=== PATIENT | female | born 1950 | race Caucasian/White ===

== ENCOUNTER 2019-09-28 05:22 | Inpatient (IN) | payer MEDICARE, OTHER ==
[~2019-09-28] VITALS: Ht 160 cm; Wt 57.7 kg
[~2019-09-28 05:22] MED LIST: ASPIRIN81 M1 PO; CALTRATE 600 +1 TA1 PO; COREG25 MG PO; FISH OIL 10001000 MG PO; FOLIC ACID1 MG PO; GLUCOSAMINE & C1 CA1 PO; LEFLUNOMIDE20 MG PO; LISINOPRIL10 MG PO; MELOXICAM7.5 MG PO; PLAQUENIL200 MG PO; PREDNISONE2.5 MG PO; SULFASALAZINE500 M1 PO; SYNTHROID,LEV112 MCG PO; VITAMIN D1000 IU PO
[2019-09-28 05:29] VITALS: BP 135/79
[2019-09-28 05:53] LABS: BASO % 0.6 % (0.0-1.0); EOS # 0.1 10*3/uL (0.0-0.4); EOS % 2.6 % (1.0-4.0); LYMPH # 1.2 10*3/uL (1.3-4.4); LYMPH % 25.8 % (27.0-41.0); MEAN CELL VOLUME 104.9 fl (81.0-99.0); MEAN CORPUSCULAR HGB 31.5 pg (27.0-31.0); MEAN PLATELET VOLUME 10.9 fl (9.6-12.3); MONO # 0.5 10*3/uL (0.1-1.0); MONO % 11.4 % (3.0-9.0); NEUT # 2.8 10*3/uL (2.3-7.9); NEUT % 59.4 % (47.0-73.0); PLATELET COUNT AUTOMATED 177 10*3/uL (130-400); RED BLOOD COUNT 2.86 10*6/uL (4.10-5.10); RED CELL DISTRI WIDTH 13.6 % (0-14.5); WHITE BLOOD COUNT 4.7 10*3/uL (4.8-10.8)
[2019-09-28 06:08] LABS: ALBUMIN 2.7 gm/dl (3.1-4.5); ALKALINE PHOSPHATASE 84 U/L (45-117); BUN 19 mg/dl (7-24); CHLORIDE 108 mmol/L (98-107); CREATININE 0.62 mg/dL (0.55-1.02); POTASSIUM 3.7 mmol/L (3.5-5.1); SGOT/AST 7 IU/L (3-35); SGPT/ALT 8 U/L (12-78); SODIUM 140 mmol/L (136-145); TOTAL PROTEIN 5.8 gm/dL (6.4-8.2)
[2019-09-28 06:11] LABS: TROPONIN I < 0.015 ng/ml (<0.045)
[2019-09-28 06:22] LABS: ACT PARTIAL THROMBO TIME 26.9 SECONDS (20.0-32.1)
[2019-09-28 08:56] VITALS: BP 120/68
[2019-09-28] MEDS ORDERED: OXYCODONE HCL10 M1 PO (09:40)
[2019-09-28] MEDS ORDERED: POTASSIUM CHLO10 ME5 PO (09:40)
[2019-09-28] MEDS ORDERED: FUROSEMIDE20 M1 PO (09:41)
[2019-09-28] MEDS ORDERED: PHARMASSURE FO0.8 MG PO (09:43)
[2019-09-28] MEDS ORDERED: PREDNISONE10 M1 PO (09:50)
[2019-09-28 12:00] VITALS: BP 119/87
[2019-09-28 16:00] VITALS: BP 141/66
[2019-09-28 20:00] VITALS: BP 127/60
[2019-09-29] VITALS: BP 112/54
[2019-09-29 08:00] VITALS: BP 147/66
[2019-09-29] MEDS ORDERED: KLOR-CON M2020 ME1 PO (11:25)
[2019-09-29] MEDS ORDERED: FUROSEMIDE10 MG/1 M1 IV (11:25)
[2019-09-29 12:00] VITALS: BP 132/71
== END 2019-09-29 16:12 | disposition home health service (06) | DRG 306 ==
LOC: ED 05:22 → EDHOLD 08:19 → 4E 08:19 → EDHOLD 08:19 → 4E 08:41
PROVIDERS: Emergency Medicine; ADMIT Internal Medicine
DX: I35.0 Nonrheumatic aortic (valve) stenosis (principal); I50.23 Acute on chronic systolic (congestive) heart failure; I25.110 Atherosclerotic heart disease of native coronary artery with unstable angina pectoris; I42.9 Cardiomyopathy, unspecified; I11.0 Hypertensive heart disease with heart failure; M06.9 Rheumatoid arthritis, unspecified; E03.9 Hypothyroidism, unspecified; F41.1 Generalized anxiety disorder; L89.150 Pressure ulcer of sacral region, unstageable; L89.621 Pressure ulcer of left heel, stage 1; G20 Parkinson's disease; Z96.652 Presence of left artificial knee joint; Z88.0 Allergy status to penicillin; Z88.6 Allergy status to analgesic agent; Z91.040 Latex allergy status; Z79.899 Other long term (current) drug therapy; Z90.710 Acquired absence of both cervix and uterus

== ENCOUNTER → 2019-11-18 | Outpatient (CLI) | payer MEDICARE, OTHER ==
[~2019-11-18] MED LIST changes: +FUROSEMIDE10 MG/1 M1 IV; +FUROSEMIDE20 M1 PO; +KLOR-CON M2020 ME1 PO; +OXYCODONE HCL10 M1 PO; +PHARMASSURE FO0.8 MG PO; +POTASSIUM CHLO10 ME5 PO; +PREDNISONE10 M1 PO
[2019-11-18 09:54] LABS: BASO % 0.4 % (0.0-1.0); EOS # 0.1 10*3/uL (0.0-0.4); HEMATOCRIT 32.8 % (37.0-47.0); LYMPH % 14.2 % (27.0-41.0); MEAN CELL VOLUME 102.8 fl (81.0-99.0); MEAN CORPUSCULAR HGB 30.7 pg (27.0-31.0); MEAN CORPUSCULAR HGB CONC 29.9 g/dl (33.0-37.0); MEAN PLATELET VOLUME 10.9 fl (9.6-12.3); MONO # 0.7 10*3/uL (0.1-1.0); MONO % 10.1 % (3.0-9.0); NEUT # 4.9 10*3/uL (2.3-7.9); NEUT % 73.9 % (47.0-73.0); PLATELET COUNT AUTOMATED 185 10*3/uL (130-400); RED BLOOD COUNT 3.19 10*6/uL (4.10-5.10); RED CELL DISTRI WIDTH 13.2 % (0-14.5); WHITE BLOOD COUNT 6.7 10*3/uL (4.8-10.8)
[2019-11-18 10:17] LABS: BILIRUBIN, DIRECT 0.1 mg/dL (0.0-0.2)
[2019-11-18 10:20] LABS: ALKALINE PHOSPHATASE 68 U/L (45-117); BUN 18 mg/dl (7-24); CHLORIDE 106 mmol/L (98-107); CREATININE 0.51 mg/dL (0.55-1.02); POTASSIUM 4.2 mmol/L (3.5-5.1); SGOT/AST 12 IU/L (3-35); SGPT/ALT 8 U/L (12-78); SODIUM 136 mmol/L (136-145); TOTAL PROTEIN 6.5 gm/dL (6.4-8.2)
== END | disposition home or self-care (01) ==
LOC: LAB 09:18
PROVIDERS: Internal Medicine Endocrinology, Diabetes & Metabolism; ATTEND Physician Assistant
DX: Z51.81 Encounter for therapeutic drug level monitoring (principal); E06.3 Autoimmune thyroiditis; M06.9 Rheumatoid arthritis, unspecified; Z79.899 Other long term (current) drug therapy

== ENCOUNTER → 2020-05-11 | Outpatient (CLI) | payer MEDICARE, OTHER ==
[~2020-05-11] MED LIST changes: +ADVIL200 MG PO; +B121000 MCG/1 IM; +BENADRYL ALLERG25 M5 PO; +CEFUROXIME AXE250 MG PO; +KLOR-CON M1010 ME1 PO; -LISINOPRIL10 MG PO; +MIRTAZAPINE15 M2 PO; +ZESTRIL10 MG PO
[2020-05-11 08:22] LABS: BASO % 0.4 % (0.0-1.0); EOS # 0.1 10*3/uL (0.0-0.4); EOS % 2.2 % (1.0-4.0); HEMATOCRIT 27.8 % (37.0-47.0); LYMPH # 1.3 10*3/uL (1.3-4.4); LYMPH % 23.2 % (27.0-41.0); MEAN CELL VOLUME 104.5 fl (81.0-99.0); MEAN CORPUSCULAR HGB 31.6 pg (27.0-31.0); MEAN CORPUSCULAR HGB CONC 30.2 g/dl (33.0-37.0); MEAN PLATELET VOLUME 11.4 fl (9.6-12.3); MONO # 0.8 10*3/uL (0.1-1.0); MONO % 14.8 % (3.0-9.0); NEUT # 3.2 10*3/uL (2.3-7.9); NEUT % 59.2 % (47.0-73.0); PLATELET COUNT AUTOMATED 213 10*3/uL (130-400); RED BLOOD COUNT 2.66 10*6/uL (4.10-5.10); RED CELL DISTRI WIDTH 13.3 % (0-14.5); WHITE BLOOD COUNT 5.4 10*3/uL (4.8-10.8)
[2020-05-11 08:53] LABS: ALBUMIN 2.5 gm/dl (3.1-4.5); ALKALINE PHOSPHATASE 71 U/L (45-117); BUN 35 mg/dl (7-24); CHLORIDE 109 mmol/L (98-107); CREATININE 0.64 mg/dL (0.55-1.02); POTASSIUM 4.5 mmol/L (3.5-5.1); SGOT/AST 9 IU/L (3-35); SGPT/ALT 8 U/L (12-78); SODIUM 137 mmol/L (136-145); TOTAL PROTEIN 5.6 gm/dL (6.4-8.2)
[2020-05-11 09:36] LABS: PTH INTACT 32.1 pg/mL (18.5-88.0); VITAMIN D, 25-HYDROXY 62.9 ng/mL (30-100)
== END | disposition home or self-care (01) ==
LOC: LAB 07:32
PROVIDERS: ATTEND Internal Medicine Endocrinology, Diabetes & Metabolism
DX: M06.9 Rheumatoid arthritis, unspecified (principal); E06.3 Autoimmune thyroiditis; E83.52 Hypercalcemia; Z79.899 Other long term (current) drug therapy

== ENCOUNTER 2020-05-24 17:08 | Inpatient (IN) | payer MEDICARE, OTHER ==
[~2020-05-24] VITALS: Ht 165.1 cm; Wt 46.9 kg
[2020-05-24] VITALS (17 sets, daily range): BP systolic 50–97; BP diastolic 17–54
[~2020-05-24 17:08] MED LIST changes: -ADVIL200 MG PO; -B121000 MCG/1 IM; -BENADRYL ALLERG25 M5 PO; -CEFUROXIME AXE250 MG PO; -KLOR-CON M1010 ME1 PO; -MIRTAZAPINE15 M2 PO
[2020-05-24 18:21] LABS: BASO % 0.2 % (0.0-1.0); EOS # 0.1 10*3/uL (0.0-0.4); EOS % 0.5 % (1.0-4.0); HEMATOCRIT 25.6 % (37.0-47.0); LYMPH % 10.1 % (27.0-41.0); MEAN CORPUSCULAR HGB 31.6 pg (27.0-31.0); MEAN CORPUSCULAR HGB CONC 29.3 g/dl (33.0-37.0); MEAN PLATELET VOLUME 11.1 fl (9.6-12.3); MONO # 1.1 10*3/uL (0.1-1.0); MONO % 11.6 % (3.0-9.0); NEUT # 7.5 10*3/uL (2.3-7.9); NEUT % 77.2 % (47.0-73.0); PLATELET COUNT AUTOMATED 299 10*3/uL (130-400); RED BLOOD COUNT 2.37 10*6/uL (4.10-5.10); RED CELL DISTRI WIDTH 14.7 % (0-14.5); WHITE BLOOD COUNT 9.7 10*3/uL (4.8-10.8)
[2020-05-24 18:38] LABS: ALBUMIN 2.4 gm/dl (3.1-4.5); ALKALINE PHOSPHATASE 83 U/L (45-117); BUN 49 mg/dl (7-24); CHLORIDE 108 mmol/L (98-107); CREATININE 0.75 mg/dL (0.55-1.02); POTASSIUM 4.5 mmol/L (3.5-5.1); SGOT/AST 5 IU/L (3-35); SGPT/ALT 7 U/L (12-78); SODIUM 134 mmol/L (136-145); TOTAL PROTEIN 5.5 gm/dL (6.4-8.2)
[2020-05-24 18:39] LABS: TROPONIN I < 0.015 ng/ml (<0.045)
[2020-05-24 20:03] LABS: BILIRUBIN Negative (Negative); BLOOD 2+ (Negative); CLARITY Cloudy (Clear); COLOR Yellow (Yellow); GLUCOSE Negative (Negative); KETONE Negative (Negative); LEUKO ESTERASE 3+ (Negative); NITRITE Negative (Negative); PH 5.5 (4.5-8.0); UROBILINOGEN 0.2 E.U./dl (0.0-1.0)
[2020-05-24 20:09] LABS: BACTERIA 2+; MUCOUS TRACE; WBC TNTC wbc/hpf (0-5)
[2020-05-25] VITALS (9 sets, daily range): BP systolic 90–120; BP diastolic 49–75
[2020-05-25] MEDS ORDERED: PLAQUENIL200 MG PO (01:21)
[2020-05-25] MEDS ORDERED: B121000 MCG/1 IM (01:22)
[2020-05-25] MEDS ORDERED: ADVIL200 MG PO (01:26)
[2020-05-25 05:09] LABS: BASO % 0.3 % (0.0-1.0); EOS # 0.1 10*3/uL (0.0-0.4); HEMATOCRIT 29.6 % (37.0-47.0); LYMPH # 1.1 10*3/uL (1.3-4.4); LYMPH % 18.9 % (27.0-41.0); MEAN CORPUSCULAR HGB 31.2 pg (27.0-31.0); MEAN CORPUSCULAR HGB CONC 31.8 g/dl (33.0-37.0); MONO # 0.8 10*3/uL (0.1-1.0); NEUT # 3.8 10*3/uL (2.3-7.9); NEUT % 65.5 % (47.0-73.0); PLATELET COUNT AUTOMATED 226 10*3/uL (130-400); RED BLOOD COUNT 3.01 10*6/uL (4.10-5.10); RED CELL DISTRI WIDTH 16.4 % (0-14.5); WHITE BLOOD COUNT 5.8 10*3/uL (4.8-10.8)
[2020-05-25 05:11] LABS: ALBUMIN 1.9 gm/dl (3.1-4.5); CHLORIDE 112 mmol/L (98-107); CREATININE 0.52 mg/dL (0.55-1.02); POTASSIUM 3.9 mmol/L (3.5-5.1); SGOT/AST 8 IU/L (3-35); SGPT/ALT 7 U/L (12-78); SODIUM 137 mmol/L (136-145)
[2020-05-25 05:16] LABS: ALKALINE PHOSPHATASE 66 U/L (45-117); BUN 41 mg/dl (7-24); TOTAL PROTEIN 4.5 gm/dL (6.4-8.2)
[2020-05-25 05:20] LABS: MEAN CELL VOLUME 98.3 fl (81.0-99.0)
[2020-05-25] MEDS ORDERED: BENADRYL ALLERG25 M5 PO (12:15)
[2020-05-26] VITALS: BP 141/73
[2020-05-26 04:00] VITALS: BP 119/67
[2020-05-26 04:50] LABS: ALBUMIN 1.8 gm/dl (3.1-4.5); ALKALINE PHOSPHATASE 69 U/L (45-117); CHLORIDE 115 mmol/L (98-107); CREATININE 0.47 mg/dL (0.55-1.02); SGOT/AST 11 IU/L (3-35); SODIUM 137 mmol/L (136-145); TOTAL PROTEIN 4.6 gm/dL (6.4-8.2)
[2020-05-26 04:53] LABS: SGPT/ALT 8 U/L (12-78)
[2020-05-26 04:55] LABS: BUN 29 mg/dl (7-24)
[2020-05-26 06:04] LABS: HEMATOCRIT 32.5 % (37.0-47.0); MEAN CELL VOLUME 98.8 fl (81.0-99.0); MEAN CORPUSCULAR HGB 30.7 pg (27.0-31.0); MEAN CORPUSCULAR HGB CONC 31.1 g/dl (33.0-37.0); MEAN PLATELET VOLUME 11.4 fl (9.6-12.3); PLATELET COUNT AUTOMATED 223 10*3/uL (130-400); RED BLOOD COUNT 3.29 10*6/uL (4.10-5.10); RED CELL DISTRI WIDTH 16.8 % (0-14.5); WHITE BLOOD COUNT 5.1 10*3/uL (4.8-10.8)
[2020-05-26 06:42] LABS: BURR CELLS MODERATE; PLATELET SUFFICIENCY NORMAL (NORMAL); TOTAL CELLS COUNTED 100 #CELLS
[2020-05-26 08:00] VITALS: BP 124/65
[2020-05-26 12:00] VITALS: BP 125/86
[2020-05-26 16:18] VITALS: BP 103/51
[2020-05-26 20:00] VITALS: BP 141/73
[2020-05-27] VITALS: BP 126/77
[2020-05-27 07:55] LABS: BASO % 0.3 % (0.0-1.0); EOS # 0.2 10*3/uL (0.0-0.4); EOS % 2.1 % (1.0-4.0); HEMATOCRIT 32.4 % (37.0-47.0); LYMPH # 1.2 10*3/uL (1.3-4.4); LYMPH % 16.8 % (27.0-41.0); MEAN CELL VOLUME 98.8 fl (81.0-99.0); MEAN CORPUSCULAR HGB 31.1 pg (27.0-31.0); MEAN CORPUSCULAR HGB CONC 31.5 g/dl (33.0-37.0); MEAN PLATELET VOLUME 10.7 fl (9.6-12.3); MONO # 1.1 10*3/uL (0.1-1.0); MONO % 14.4 % (3.0-9.0); NEUT # 4.8 10*3/uL (2.3-7.9); NEUT % 65.8 % (47.0-73.0); PLATELET COUNT AUTOMATED 263 10*3/uL (130-400); RED BLOOD COUNT 3.28 10*6/uL (4.10-5.10); RED CELL DISTRI WIDTH 16.7 % (0-14.5); WHITE BLOOD COUNT 7.3 10*3/uL (4.8-10.8)
[2020-05-27 08:14] LABS: ALKALINE PHOSPHATASE 67 U/L (45-117); CHLORIDE 112 mmol/L (98-107); CREATININE 0.42 mg/dL (0.55-1.02); POTASSIUM 3.7 mmol/L (3.5-5.1); SGOT/AST 10 IU/L (3-35); SGPT/ALT 9 U/L (12-78); SODIUM 136 mmol/L (136-145); TOTAL PROTEIN 4.8 gm/dL (6.4-8.2)
[2020-05-27 08:17] LABS: BUN 19 mg/dl (7-24)
[2020-05-27 16:00] VITALS: BP 96/59
[2020-05-27 20:00] VITALS: BP 104/62; BP 156/89
[2020-05-28] VITALS (9 sets, daily range): BP systolic 72–117; BP diastolic 41–74
[2020-05-29] VITALS: BP 109/60
[2020-05-29 05:09] LABS: ALKALINE PHOSPHATASE 66 U/L (45-117); BUN 22 mg/dl (7-24); CHLORIDE 113 mmol/L (98-107); CREATININE 0.44 mg/dL (0.55-1.02); SGOT/AST 9 IU/L (3-35); SGPT/ALT 6 U/L (12-78); SODIUM 140 mmol/L (136-145); TOTAL PROTEIN 4.4 gm/dL (6.4-8.2)
[2020-05-29 05:14] LABS: POTASSIUM 2.6 mmol/L (3.5-5.1)
[2020-05-29 06:21] LABS: BASO % 0.3 % (0.0-1.0); EOS # 0.1 10*3/uL (0.0-0.4); EOS % 1.5 % (1.0-4.0); HEMATOCRIT 30.6 % (37.0-47.0); LYMPH % 14.3 % (27.0-41.0); MEAN CORPUSCULAR HGB 31.1 pg (27.0-31.0); MEAN CORPUSCULAR HGB CONC 31.4 g/dl (33.0-37.0); MONO # 0.9 10*3/uL (0.1-1.0); MONO % 12.8 % (3.0-9.0); NEUT # 4.8 10*3/uL (2.3-7.9); NEUT % 70.4 % (47.0-73.0); PLATELET COUNT AUTOMATED 227 10*3/uL (130-400); RED BLOOD COUNT 3.09 10*6/uL (4.10-5.10); RED CELL DISTRI WIDTH 16.4 % (0-14.5); WHITE BLOOD COUNT 6.9 10*3/uL (4.8-10.8)
[2020-05-29 08:00] VITALS: BP 110/86
[2020-05-29 12:00] VITALS: BP 106/76
[2020-05-29 16:00] VITALS: BP 127/76
[2020-05-29 20:00] VITALS: BP 132/80
[2020-05-30] VITALS: BP 135/62
[2020-05-30 06:16] LABS: BASO % 0.5 % (0.0-1.0); EOS % 0.9 % (1.0-4.0); HEMATOCRIT 25.9 % (37.0-47.0); LYMPH % 23.1 % (27.0-41.0); MEAN CELL VOLUME 97.4 fl (81.0-99.0); MEAN CORPUSCULAR HGB 30.8 pg (27.0-31.0); MEAN CORPUSCULAR HGB CONC 31.7 g/dl (33.0-37.0); MEAN PLATELET VOLUME 10.9 fl (9.6-12.3); MONO # 0.6 10*3/uL (0.1-1.0); MONO % 13.7 % (3.0-9.0); NEUT # 2.7 10*3/uL (2.3-7.9); NEUT % 61.6 % (47.0-73.0); PLATELET COUNT AUTOMATED 201 10*3/uL (130-400); RED BLOOD COUNT 2.66 10*6/uL (4.10-5.10); WHITE BLOOD COUNT 4.4 10*3/uL (4.8-10.8)
[2020-05-30 08:00] VITALS: BP 151/97
[2020-05-30 12:00] VITALS: BP 150/100
[2020-05-30 16:00] VITALS: BP 123/77
[2020-05-30 20:00] VITALS: BP 123/68
[2020-05-31] VITALS (16 sets, daily range): BP systolic 77–134; BP diastolic 44–70
[2020-05-31 07:04] LABS: ALBUMIN 2.1 gm/dl (3.1-4.5); ALKALINE PHOSPHATASE 71 U/L (45-117); BUN 12 mg/dl (7-24); CHLORIDE 107 mmol/L (98-107); POTASSIUM 3.9 mmol/L (3.5-5.1); SGOT/AST 13 IU/L (3-35); SGPT/ALT 9 U/L (12-78); SODIUM 134 mmol/L (136-145); TOTAL PROTEIN 4.8 gm/dL (6.4-8.2)
[2020-05-31 07:12] LABS: CREATININE 0.47 mg/dL (0.55-1.02)
[2020-06-01] VITALS: BP 97/57
[2020-06-01 04:00] VITALS: BP 115/55
[2020-06-01 06:24] LABS: BASO % 0.3 % (0.0-1.0); EOS # 0.1 10*3/uL (0.0-0.4); EOS % 1.2 % (1.0-4.0); HEMATOCRIT 28.9 % (37.0-47.0); LYMPH # 1.3 10*3/uL (1.3-4.4); LYMPH % 18.9 % (27.0-41.0); MEAN CORPUSCULAR HGB 30.6 pg (27.0-31.0); MEAN CORPUSCULAR HGB CONC 31.8 g/dl (33.0-37.0); MEAN PLATELET VOLUME 11.1 fl (9.6-12.3); MONO # 0.6 10*3/uL (0.1-1.0); MONO % 9.2 % (3.0-9.0); NEUT # 4.6 10*3/uL (2.3-7.9); NEUT % 69.9 % (47.0-73.0); PLATELET COUNT AUTOMATED 220 10*3/uL (130-400); RED BLOOD COUNT 3.01 10*6/uL (4.10-5.10); RED CELL DISTRI WIDTH 15.9 % (0-14.5); WHITE BLOOD COUNT 6.6 10*3/uL (4.8-10.8)
[2020-06-01 06:38] LABS: BUN 11 mg/dl (7-24); CHLORIDE 108 mmol/L (98-107); CREATININE 0.46 mg/dL (0.55-1.02); POTASSIUM 3.6 mmol/L (3.5-5.1); SODIUM 137 mmol/L (136-145)
[2020-06-01 08:00] VITALS: BP 117/60
[2020-06-01 12:00] VITALS: BP 103/52
[2020-06-01 16:00] VITALS: BP 108/64
[2020-06-01 20:00] VITALS: BP 92/61
[2020-06-02 06:11] LABS: BASO % 0.2 % (0.0-1.0); EOS # 0.1 10*3/uL (0.0-0.4); EOS % 0.6 % (1.0-4.0); HEMATOCRIT 29.2 % (37.0-47.0); LYMPH # 0.6 10*3/uL (1.3-4.4); LYMPH % 6.6 % (27.0-41.0); MEAN CELL VOLUME 96.7 fl (81.0-99.0); MEAN CORPUSCULAR HGB 30.8 pg (27.0-31.0); MEAN CORPUSCULAR HGB CONC 31.8 g/dl (33.0-37.0); MEAN PLATELET VOLUME 10.2 fl (9.6-12.3); MONO # 0.7 10*3/uL (0.1-1.0); MONO % 6.8 % (3.0-9.0); NEUT # 8.2 10*3/uL (2.3-7.9); NEUT % 85.4 % (47.0-73.0); PLATELET COUNT AUTOMATED 187 10*3/uL (130-400); RED BLOOD COUNT 3.02 10*6/uL (4.10-5.10); RED CELL DISTRI WIDTH 15.9 % (0-14.5); WHITE BLOOD COUNT 9.6 10*3/uL (4.8-10.8)
[2020-06-02 06:37] LABS: BUN 11 mg/dl (7-24); CHLORIDE 107 mmol/L (98-107); CREATININE 0.43 mg/dL (0.55-1.02); POTASSIUM 3.6 mmol/L (3.5-5.1); SODIUM 136 mmol/L (136-145)
[2020-06-02] MEDS ORDERED: MIRTAZAPINE15 M2 PO (06:48)
[2020-06-02] MEDS ORDERED: CEFUROXIME AXE250 MG PO (06:48)
[2020-06-02] MEDS ORDERED: KLOR-CON M1010 ME1 PO (06:48)
[2020-06-02 08:38] VITALS: BP 95/60
== END 2020-06-02 11:05 | disposition home health service (06) | DRG 329 ==
LOC: ED 17:08 → 4E 21:47 → ICCU 21:47 → EDHOLD 21:47 → ICCU 22:58 → 4E 05-26 17:32 → ICCU 05-31 11:05 → 5E 06-01 21:36
PROVIDERS: Physician Assistant; ADMIT Internal Medicine; ATTEND Internal Medicine
PROC: 30233N1 Transfusion of Nonautologous Red Blood Cells into Peripheral Vein, Percutaneous Approach (ICD-10-PCS; principal; 2020-05-24)
PROC: 0DB68ZX Excision of Stomach, Via Natural or Artificial Opening Endoscopic, Diagnostic (ICD-10-PCS; 2020-05-28)
PROC: 0DJD8ZZ Inspection of Lower Intestinal Tract, Via Natural or Artificial Opening Endoscopic (ICD-10-PCS; 2020-05-28)
PROC: 05HY33Z Insertion of Infusion Device into Upper Vein, Percutaneous Approach (ICD-10-PCS; 2020-05-29)
PROC: 0D1E4Z4 Bypass Large Intestine to Cutaneous, Percutaneous Endoscopic Approach (ICD-10-PCS; 2020-05-31)
PROC: 03HY33Z Insertion of Infusion Device into Upper Artery, Percutaneous Approach (ICD-10-PCS; 2020-05-31)
PROC: 3E0T3BZ Introduction of Anesthetic Agent into Peripheral Nerves and Plexi, Percutaneous Approach (ICD-10-PCS; 2020-05-31)
DX: K63.2 Fistula of intestine (principal); K57.31 Diverticulosis of large intestine without perforation or abscess with bleeding; E43 Unspecified severe protein-calorie malnutrition; K29.71 Gastritis, unspecified, with bleeding; I50.22 Chronic systolic (congestive) heart failure; N39.0 Urinary tract infection, site not specified; D62 Acute posthemorrhagic anemia; I43 Cardiomyopathy in diseases classified elsewhere; Z68.1 Body mass index [BMI] 19.9 or less, adult; F41.1 Generalized anxiety disorder; I95.9 Hypotension, unspecified; M06.9 Rheumatoid arthritis, unspecified; I11.0 Hypertensive heart disease with heart failure; D63.8 Anemia in other chronic diseases classified elsewhere; I25.10 Atherosclerotic heart disease of native coronary artery without angina pectoris; E87.6 Hypokalemia; G20 Parkinson's disease; B96.89 Other specified bacterial agents as the cause of diseases classified elsewhere; B96.20 Unspecified Escherichia coli [E. coli] as the cause of diseases classified elsewhere; E86.1 Hypovolemia; I35.0 Nonrheumatic aortic (valve) stenosis; F51.01 Primary insomnia; D73.1 Hypersplenism; R62.7 Adult failure to thrive; K59.09 Other constipation; E03.9 Hypothyroidism, unspecified; Z88.0 Allergy status to penicillin; Z91.040 Latex allergy status; Z88.6 Allergy status to analgesic agent; Z79.52 Long term (current) use of systemic steroids; Z79.899 Other long term (current) drug therapy; Z90.710 Acquired absence of both cervix and uterus

== ENCOUNTER → 2020-08-17 | Outpatient (CLI) | payer MEDICARE, OTHER ==
[~2020-08-17] MED LIST changes: +ADVIL200 MG PO; +B121000 MCG/1 IM; +BENADRYL ALLERG25 M5 PO; +CEFUROXIME AXE250 MG PO; +KLOR-CON M1010 ME1 PO; +MIRTAZAPINE15 M2 PO
[2020-08-17 09:43] LABS: BASO % 0.5 % (0.0-1.0); EOS # 0.1 10*3/uL (0.0-0.4); EOS % 2.4 % (1.0-4.0); HEMATOCRIT 25.6 % (37.0-47.0); LYMPH # 1.3 10*3/uL (1.3-4.4); LYMPH % 33.9 % (27.0-41.0); MEAN CELL VOLUME 103.2 fl (81.0-99.0); MEAN CORPUSCULAR HGB 32.7 pg (27.0-31.0); MEAN CORPUSCULAR HGB CONC 31.6 g/dl (33.0-37.0); MEAN PLATELET VOLUME 10.9 fl (9.6-12.3); MONO # 0.7 10*3/uL (0.1-1.0); MONO % 18.6 % (3.0-9.0); NEUT # 1.7 10*3/uL (2.3-7.9); NEUT % 43.8 % (47.0-73.0); PLATELET COUNT AUTOMATED 200 10*3/uL (130-400); RED BLOOD COUNT 2.48 10*6/uL (4.10-5.10); RED CELL DISTRI WIDTH 13.1 % (0-14.5); WHITE BLOOD COUNT 3.8 10*3/uL (4.8-10.8)
[2020-08-17 10:14] LABS: ALBUMIN 3.2 gm/dl (3.1-4.5); BUN 25 mg/dl (7-24); CHLORIDE 100 mmol/L (98-107); CREATININE 0.48 mg/dL (0.55-1.02); POTASSIUM 4.8 mmol/L (3.5-5.1); SGOT/AST 19 IU/L (3-35); SODIUM 125 mmol/L (136-145); TOTAL PROTEIN 5.8 gm/dL (6.4-8.2)
[2020-08-17 10:20] LABS: ALKALINE PHOSPHATASE 76 U/L (45-117); SGPT/ALT 15 U/L (12-78); THYROID STIM HORMONE (HS) 6.79 uIU/ml (0.358-4.75)
[2020-08-17 10:31] LABS: PTH INTACT 33.7 pg/mL (18.5-88.0); VITAMIN D, 25-HYDROXY 64.1 ng/mL (30-100)
== END | disposition home or self-care (01) ==
LOC: LAB 09:02
PROVIDERS: Internal Medicine Endocrinology, Diabetes & Metabolism; ATTEND Nurse Practitioner Adult Health
DX: E06.3 Autoimmune thyroiditis (principal); E83.52 Hypercalcemia; I42.8 Other cardiomyopathies; Z79.899 Other long term (current) drug therapy

== ENCOUNTER → 2020-09-07 | Outpatient (CLI) | payer MEDICARE, OTHER ==
[2020-09-07 09:08] LABS: BASO % 0.4 % (0.0-1.0); EOS # 0.1 10*3/uL (0.0-0.4); EOS % 2.2 % (1.0-4.0); HEMATOCRIT 27.2 % (37.0-47.0); LYMPH % 36.2 % (27.0-41.0); MEAN CELL VOLUME 107.9 fl (81.0-99.0); MEAN CORPUSCULAR HGB 33.3 pg (27.0-31.0); MEAN CORPUSCULAR HGB CONC 30.9 g/dl (33.0-37.0); MEAN PLATELET VOLUME 11.1 fl (9.6-12.3); MONO # 0.7 10*3/uL (0.1-1.0); MONO % 13.5 % (3.0-9.0); NEUT # 2.6 10*3/uL (2.3-7.9); NEUT % 47.5 % (47.0-73.0); PLATELET COUNT AUTOMATED 227 10*3/uL (130-400); RED BLOOD COUNT 2.52 10*6/uL (4.10-5.10); RED CELL DISTRI WIDTH 14.2 % (0-14.5); WHITE BLOOD COUNT 5.4 10*3/uL (4.8-10.8)
[2020-09-07 09:44] LABS: ALBUMIN 3.2 gm/dl (3.1-4.5); ALKALINE PHOSPHATASE 76 U/L (45-117); BUN 33 mg/dl (7-24); CHLORIDE 110 mmol/L (98-107); POTASSIUM 4.8 mmol/L (3.5-5.1); SGOT/AST 14 IU/L (3-35); SGPT/ALT 13 U/L (12-78); SODIUM 137 mmol/L (136-145); TOTAL PROTEIN 5.9 gm/dL (6.4-8.2)
== END | disposition home or self-care (01) ==
LOC: LAB 08:27
PROVIDERS: Internal Medicine Rheumatology; ATTEND Nurse Practitioner Adult Health
DX: M06.9 Rheumatoid arthritis, unspecified (principal); I42.8 Other cardiomyopathies; D64.9 Anemia, unspecified; D72.818 Other decreased white blood cell count

== ENCOUNTER → 2020-12-08 | Outpatient (CLI) | payer MEDICARE, OTHER ==
[2020-12-08 09:13] LABS: BASO % 0.3 % (0.0-1.0); EOS # 0.2 10*3/uL (0.0-0.4); EOS % 3.2 % (1.0-4.0); HEMATOCRIT 31.5 % (37.0-47.0); LYMPH # 1.9 10*3/uL (1.3-4.4); LYMPH % 29.8 % (27.0-41.0); MEAN CELL VOLUME 104.3 fl (81.0-99.0); MEAN CORPUSCULAR HGB 31.5 pg (27.0-31.0); MEAN CORPUSCULAR HGB CONC 30.2 g/dl (33.0-37.0); MEAN PLATELET VOLUME 10.8 fl (9.6-12.3); MONO # 0.9 10*3/uL (0.1-1.0); MONO % 13.8 % (3.0-9.0); NEUT # 3.3 10*3/uL (2.3-7.9); NEUT % 52.6 % (47.0-73.0); PLATELET COUNT AUTOMATED 213 10*3/uL (130-400); RED BLOOD COUNT 3.02 10*6/uL (4.10-5.10); RED CELL DISTRI WIDTH 13.4 % (0-14.5); WHITE BLOOD COUNT 6.3 10*3/uL (4.8-10.8)
[2020-12-08 09:31] LABS: ALBUMIN 3.2 gm/dl (3.1-4.5); ALKALINE PHOSPHATASE 88 U/L (45-117); BUN 41 mg/dl (7-24); CHLORIDE 111 mmol/L (98-107); CREATININE 0.65 mg/dL (0.55-1.02); POTASSIUM 5.8 mmol/L (3.5-5.1); SGOT/AST 10 IU/L (3-35); SGPT/ALT 14 U/L (12-78); SODIUM 137 mmol/L (136-145); TOTAL PROTEIN 6.6 gm/dL (6.4-8.2)
[2020-12-08 10:19] LABS: PTH INTACT 40.8 pg/mL (18.5-88.0); VITAMIN D, 25-HYDROXY 58.9 ng/mL (30-100)
== END | disposition home or self-care (01) ==
LOC: LAB 08:54
PROVIDERS: Internal Medicine Endocrinology, Diabetes & Metabolism; ATTEND Nurse Practitioner Adult Health
DX: E83.52 Hypercalcemia (principal); E06.3 Autoimmune thyroiditis; Z79.899 Other long term (current) drug therapy

== ENCOUNTER → 2020-12-15 | Outpatient (CLI) | payer MEDICARE, OTHER ==
[2020-12-15 10:11] LABS: BUN 66 mg/dl (7-24); CHLORIDE 110 mmol/L (98-107); CREATININE 1.05 mg/dL (0.55-1.02); POTASSIUM 5.3 mmol/L (3.5-5.1); SODIUM 135 mmol/L (136-145)
== END | disposition home or self-care (01) ==
LOC: LAB 09:27
PROVIDERS: ATTEND Internal Medicine Cardiovascular Disease
DX: I42.8 Other cardiomyopathies (principal)

== ENCOUNTER 2020-12-25 06:11 | Inpatient (IN) | payer MEDICARE, OTHER ==
[~2020-12-25] VITALS: Ht 157.4 cm; Wt 45.4 kg
[2020-12-25 07:29] VITALS: BP 70/40
[2020-12-25 07:33] LABS: HEMATOCRIT 23.6 % (37.0-47.0); MEAN CELL VOLUME 108.8 fl (81.0-99.0); MEAN CORPUSCULAR HGB 31.3 pg (27.0-31.0); MEAN CORPUSCULAR HGB CONC 28.8 g/dl (33.0-37.0); MEAN PLATELET VOLUME 12.2 fl (9.6-12.3); PLATELET COUNT AUTOMATED 166 10*3/uL (130-400); RED BLOOD COUNT 2.17 10*6/uL (4.10-5.10); RED CELL DISTRI WIDTH 14.1 % (0-14.5); WHITE BLOOD COUNT 5.3 10*3/uL (4.8-10.8)
[2020-12-25 07:48] LABS: ALBUMIN 2.4 gm/dl (3.1-4.5); CREATININE 1.75 mg/dL (0.55-1.02); TOTAL PROTEIN 5.4 gm/dL (6.4-8.2)
[2020-12-25 07:52] LABS: POTASSIUM 7.3 mmol/L (3.5-5.1)
[2020-12-25 08:16] LABS: POLYCHROMASIA SLIGHT; TOTAL CELLS COUNTED 100 #CELLS
[2020-12-25 08:17] LABS: BURR CELLS FEW; PLATELET SUFFICIENCY NORMAL (NORMAL); SCHISTOCYTES FEW
[2020-12-25 08:41] LABS: IRON 53 ug/dL (50-170); TOTAL IRON BINDING CAPACITY 189 ug/dl (250-450)
[2020-12-25 09:43] VITALS: BP 51/22
[2020-12-25 14:26] VITALS: BP 58/20
== END 2020-12-25 17:10 | DRG 378 ==
LOC: ED 06:11 → EDHOLD 09:14 → 5E 16:34
PROVIDERS: Emergency Medicine; Internal Medicine; ADMIT Internal Medicine; ATTEND Internal Medicine
DX: K92.2 Gastrointestinal hemorrhage, unspecified (principal); D62 Acute posthemorrhagic anemia; E44.0 Moderate protein-calorie malnutrition; Z66 Do not resuscitate; E87.5 Hyperkalemia; Z88.0 Allergy status to penicillin; Z51.5 Encounter for palliative care; Z88.6 Allergy status to analgesic agent; Z91.040 Latex allergy status